=== PATIENT | female | born 1965 | race Caucasian/White ===

== ENCOUNTER → 2017-12-06 | Outpatient (CLI) | payer OTHER ==
[~2017-12-06] MED LIST: Multiple Vitam1 EAC1 PO; Non-Pseudo Sinu10 MG PO
== END | disposition home or self-care (01) ==
LOC: LAB SHORT 16:52 → LAB 16:52
PROVIDERS: Obstetrics & Gynecology
DX: Z01.419 Encounter for gynecological examination (general) (routine) without abnormal findings (principal)
CPT/HCPCS: 87624; G0123

== ENCOUNTER → 2018-12-12 | Outpatient (CLI) | payer OTHER ==
[2018-12-12 16:57] LABS: Source, Urine Clean Catch
[2018-12-12 18:06] LABS: Bilirubin, Urine Neg (Neg); Blood, Urine 1+ (Neg); Glucose Qualitative, Urine Neg (Neg); Ketones, Urine Neg (Neg); Leukocyte Esterase, Urine Neg (Neg); Nitrite, Urine Neg (Neg); Protein, Urine Neg (Neg); Urobilinogen, Urine NORM (Normal)
[2018-12-12 18:07] LABS: BASOPHILS ABSOLUTE AUTO 0.06 K/mm3 (0.00-0.23); BASOPHILS PERCENT AUTO 1 % (0-2); EOSINOPHILS ABSOLUTE AUTO 0.19 K/mm3 (0.00-0.68); EOSINOPHILS PERCENT AUTO 2 % (0-6); Hemoglobin 13.4 g/dL (11.5-16.0); IMMATURE GRAN ABSOLUTE AUTO 0.01 K/mm3 (0.00-0.10); IMMATURE GRAN PERCENT AUTO 0 % (0-1); LYMPHOCYTES ABSOLUTE AUTO 2.28 K/mm3 (0.84-5.20); LYMPHOCYTES PERCENT AUTO 26 % (21-46); MONOCYTES ABSOLUTE AUTO 0.61 K/mm3 (0.16-1.47); MONOCYTES PERCENT AUTO 7 % (4-13); Mean Corpuscular HGB 28.3 pg (26.0-34.0); Mean Corpuscular HGB Conc 31.9 g/dL (31.5-36.5); Mean Corpuscular Volume 89 fL (80-100); Mean Platelet Volume 10.7 fL (9.1-12.4); NEUTROPHILS ABSOLUTE AUTO 5.72 K/mm3 (1.96-9.15); NEUTROPHILS PERCENT AUTO 65 % (41-73); Platelet Count 296 K/mm3 (150-400); RDW Coefficient Variation 12.7 % (11.7-14.2); RDW Standard Deviation 41.9 fL (35.1-46.3); Red Blood Cell Count 4.73 M/mm3 (3.80-5.20); White Blood Cell Count 8.87 K/mm3 (4.00-11.30)
[2018-12-12 18:21] LABS: Appearance, Urine Clear (Clear); Color, Urine Yellow (P-Yellow)
[2018-12-12 18:24] LABS: White Blood Cells, Urine 0-2 /hpf (0-5)
[2018-12-12 18:25] LABS: Bacteria Few /hpf; Squamous Epithelial Cells Few /hpf (Few)
[2018-12-12 18:45] LABS: Alanine Aminotransfer (ALT/SGP 24 U/L (12-78); Albumin, Blood 3.9 g/dL (3.4-5.0); Albumin/Globulin Ratio 1.2 (0.8-1.8); Alk Phos 80 U/L (50-136); Anion Gap 5 mmol/L (6-16); Aspartate Aminotrans (AST/SGOT 11 U/L (12-37); Bilirubin, Total 0.3 mg/dL (0.1-1.0); Blood Urea Nitrogen 22 mg/dL (8-24); Bun/Creatinine Ratio 25.7 (12.0-20.0); CO2, Blood 28 mmol/L (21-32); Calcium, Blood 9.3 mg/dL (8.5-10.1); Chloride, Blood 105 mmol/L (98-108); Creatinine, Blood 0.86 mg/dL (0.40-1.00); Globulin, Blood 3.3 g/dL (2.2-4.0); Glomerular Filtration Rate >60 (60-); Glucose, Blood 90 mg/dL (70-99); Potassium, Blood 3.8 mmol/L (3.5-5.5); Sodium, Blood 138 mmol/L (136-145); Total Protein, Blood 7.2 g/dL (6.4-8.2)
[2018-12-14 15:06] LABS: HPV 16 Negative (Negative); HPV 18 Negative (Negative); HPV OTHER HR TYPES Negative (Negative)
== END | disposition home or self-care (01) ==
LOC: LAB SHORT 16:23 → LAB 16:23
PROVIDERS: Obstetrics & Gynecology
DX: Z01.419 Encounter for gynecological examination (general) (routine) without abnormal findings (principal); R53.83 Other fatigue
CPT/HCPCS: 36415; 80053; 81001; 85025; 87624; G0123

== ENCOUNTER → 2019-12-18 | Outpatient (CLI) | payer OTHER ==
[2019-12-19 15:09] LABS: HPV 16 Negative (Negative); HPV 18 Negative (Negative); HPV OTHER HR TYPES Negative (Negative)
== END | disposition home or self-care (01) ==
LOC: LAB 19:15 → LAB SHORT 19:15
PROVIDERS: Obstetrics & Gynecology
DX: Z01.419 Encounter for gynecological examination (general) (routine) without abnormal findings (principal)
CPT/HCPCS: 87624; G0123

== ENCOUNTER 2022-01-15 18:12 | Emergency (ER) | payer OTHER ==
[~2022-01-15] VITALS: Ht 172.7 cm; Wt 63.5 kg
[2022-01-15] MEDS ORDERED: Cipro500 MG PO (19:15)
[2022-01-15] MEDS ORDERED: Cleocin HCl150 MG PO (19:15)
[2022-01-15] MEDS ORDERED: SACC250C PO (19:15)
== END 2022-01-15 19:23 | disposition home or self-care (01) ==
LOC: ER 18:12
DX: S61.051A Open bite of right thumb without damage to nail, initial encounter (principal); S61.255A Open bite of left ring finger without damage to nail, initial encounter; W54.0XXA Bitten by dog, initial encounter; Z88.0 Allergy status to penicillin; Z88.1 Allergy status to other antibiotic agents; Z79.899 Other long term (current) drug therapy; Z23 Encounter for immunization
CPT/HCPCS: 90714; A9270

== ENCOUNTER → 2022-01-29 | Outpatient (CLI) | payer OTHER ==
[~2022-01-29] MED LIST changes: +Cipro500 MG PO; +Cleocin HCl150 MG PO; +SACC250C PO
[2022-02-02 15:11] LABS: HPV 16 Negative (Negative); HPV 18 Negative (Negative); HPV OTHER HR TYPES Negative (Negative)
== END | disposition home or self-care (01) ==
LOC: LAB 18:16 → LAB SHORT 18:16
PROVIDERS: Advanced Practice Midwife
DX: Z01.419 Encounter for gynecological examination (general) (routine) without abnormal findings (principal)
CPT/HCPCS: 87624; G0123

== ENCOUNTER 2024-09-11 08:24 | Day surgery (SDC) | payer OTHER ==
[~2024-09-11] VITALS: Ht 167.6 cm; Wt 75.2 kg
[~2024-09-11 08:24] MED LIST changes: +ELIQUIS5 M2 PO; +Lactated Ringer's 1,000 ML IV ONE; +propofoL 50 ML IV ONE
[2024-09-11] MEDS ORDERED: Lactated Ringer's 1,000 ML IV ONE (09:06)
[2024-09-11 10:49] VITALS: BP 121/65
== END 2024-09-11 10:45 | disposition home or self-care (01) ==
LOC: ORSCSDS 08:24
PROVIDERS: Surgery
PROC: 0DBK8ZX Excision of Ascending Colon, Via Natural or Artificial Opening Endoscopic, Diagnostic (ICD-10-PCS; principal; 2024-09-11 09:30)
DX: Z12.11 Encounter for screening for malignant neoplasm of colon (principal); Z86.0101 Personal history of adenomatous and serrated colon polyps; K63.5 Polyp of colon; I10 Essential (primary) hypertension; Z86.711 Personal history of pulmonary embolism; Z79.01 Long term (current) use of anticoagulants
CPT/HCPCS: 88305; J2704; J7120

== ENCOUNTER 2025-02-04 06:10 | Day surgery (SDC) | payer OTHER ==
[~2025-02-04] VITALS: Ht 167.6 cm; Wt 75.0 kg
[~2025-02-04 06:10] MED LIST changes: -Lactated Ringer's 1,000 ML IV ONE; +Lidocaine 1%-Epineph 1:100000 20 ML MDV ONE; +NS 500 ML IV ONE; -propofoL 50 ML IV ONE
[2025-02-04] MEDS ORDERED: NS 500 ML IV ONE (06:45)
[2025-02-04] MEDS ORDERED: CeFAZolin Sodium 2,000 MG VIAL ONE (06:51)
[2025-02-04] MEDS ORDERED: Dexamethasone Sod Phos 10 MG/ML 1ML VIAL ONE (06:55)
[2025-02-04] MEDS ORDERED: FentaNYL Citrate 50 MCG/ML 2 ML Injection ONE (06:55)
[2025-02-04] MEDS ORDERED: Ondansetron HCl 2 MG / ML 2ML Vial ONE (06:55)
[2025-02-04 08:00] VITALS: BP 129/71
== END 2025-02-04 08:20 | disposition home or self-care (01) ==
LOC: ORSCSDS 06:10
PROVIDERS: Orthopaedic Surgery
PROC: 0JBG0ZX Excision of Right Lower Arm Subcutaneous Tissue and Fascia, Open Approach, Diagnostic (ICD-10-PCS; principal; 2025-02-04 07:30)
PROC: 0LN70ZZ Release Right Hand Tendon, Open Approach (ICD-10-PCS; principal; 2025-02-04 07:30)
PROC: 01N54ZZ Release Median Nerve, Percutaneous Endoscopic Approach (ICD-10-PCS; principal; 2025-02-04 07:30)
DX: G56.03 Carpal tunnel syndrome, bilateral upper limbs (principal); M65.331 Trigger finger, right middle finger; M65.341 Trigger finger, right ring finger; I10 Essential (primary) hypertension; Z86.711 Personal history of pulmonary embolism; Z86.718 Personal history of other venous thrombosis and embolism
CPT/HCPCS: 88304; 88313; J0690; J1100; J2405; J2704; J3010; J7040

== ENCOUNTER → 2025-05-03 | Outpatient (CLI) | payer OTHER ==
[~2025-05-03] MED LIST changes: -Lidocaine 1%-Epineph 1:100000 20 ML MDV ONE; -NS 500 ML IV ONE
== END | disposition home or self-care (01) ==
LOC: LAB 09:06 → LAB SHORT 09:06
DX: M79.601 Pain in right arm (principal)
CPT/HCPCS: 85379